=== PATIENT | female | born 1980 | race Caucasian/White ===

== ENCOUNTER → 2016-07-04 | Outpatient (CLI) | payer OTHER ==
[~2016-07-04] MED LIST: AMOXICILLIN 8751 TAB PO; BIRTH CONTROL PILLS; DOXYCYCLINE 10100 MG PO; LEVAQUIN 750MG750 M1 PO; NEXIUM 40MG40 MG PO; PYRIDIUM 100MG100 MG PO
== END ==
LOC: COL.RAD 13:14
DX: N92.5 Other specified irregular menstruation (principal); N94.6 Dysmenorrhea, unspecified; Q51.818 Other congenital malformations of uterus; Z87.42 Personal history of other diseases of the female genital tract

== ENCOUNTER 2017-09-24 11:46 | Emergency (ER) | payer OTHER ==
[~2017-09-24] VITALS: Ht 170.2 cm; Wt 55.4 kg
[2017-09-24 11:52] VITALS: TEMP 98.5
[2017-09-24 12:26] LABS: BASO % 0.3 % (0.0-2.0); EOS # 0.1 (0.0-0.7); GRAN # 4.2 (1.4-6.5); GRAN % 59.3 % (42.2-75.2); HEMATOCRIT 41.8 % (37.0-47.0); HEMOGLOBIN 13.7 g/dl (12.5-16.0); LYMPH # 1.9 (1.2-3.4); LYMPH % 27.2 % (20.0-51.0); MEAN CELL VOLUME 96 fl (80.0-100.0); MEAN CORPUSCULAR HEMOGLOBIN 32 pg (27.0-31.0); MEAN CORPUSCULAR HGB CONC 33 g/dl (33.0-37.0); MEAN PLATELET VOLUME 10.7 fl (7.4-10.4); MONO # 0.8 (0.1-0.6); MONO % 10.9 % (1.7-9.3); PLATELET COUNT 275 K/mm3 (130-400); RED BLOOD COUNT 4.35 M/mm3 (4.10-5.30); REDCELL DISTRIBUTION WIDTH-CV 12.2 % (11.5-14.5)
[2017-09-24 12:35] LABS: ALANINE AMINOTRANSFERASE 21 U/L (9-52); ALKALINE PHOSPHATASE 74 U/L (50-136); ANION GAP 12 mmol/L (7-16); AST,SGOT 27 U/L (15-37); BILIRUBIN,TOTAL 0.3 mg/dL (0.0-1.0); BLOOD UREA NITROGEN 2 mg/dL (7-17); CALCIUM 9.1 mg/dL (8.4-10.2); CARBON DIOXIDE 27 mmol/L (22-30); CHLORIDE 103 mmol/L (98-107); CREATININE, serum 0.78 mg/dL (0.52-1.25); GLUCOSE 89 mg/dL (74-106); LIPASE 97 U/L (23-300); POTASSIUM 3.2 mmol/L (3.4-5.0); SODIUM 141 mmol/L (137-145); TOTAL PROTEIN 7.2 gm/dL (6.4-8.2)
[2017-09-24 12:37] LABS: C-REACTIVE PROTEIN < 0.5 mg/dL (0.0-0.9)
[2017-09-24] MEDS ORDERED: MULTIPLE VITAMI1 CAP PO (12:46)
[2017-09-24] MEDS ORDERED: B-12 250 MCG (12:47)
[2017-09-24] MEDS ORDERED: SUDAFED30 MG PO (12:47)
[2017-09-24 13:37] LABS: COLLECTION METHOD CLEAN CATCH
[2017-09-24 13:50] LABS: PH 6 (5-8); URINE APPEARANCE Clear; URINE BACTERIA None Seen /hpf; URINE BILIRUBIN Negative (NEGATIVE); URINE BLOOD 2+ (NEGATIVE); URINE COLOR Straw; URINE GLUCOSE Negative (NEGATIVE); URINE KETONE Negative (NEGATIVE); URINE LEUKOCYTE ESTERASE Negative (NEGATIVE); URINE NITRATE Negative (NEGATIVE); URINE PROTEIN(semi-quant) Negative (NEGATIVE); URINE UROBILINOGEN Negative (NEGATIVE)
[2017-09-24] MEDS ORDERED: PHENERGAN 25 TA25 MG PO (14:31)
[2017-09-24] MEDS ORDERED: NORCO 325 MG-51 TAB PO (14:31)
[2017-09-24 14:41] VITALS: BP 103/91; PULSE 75
== END 2017-09-24 14:56 | disposition home or self-care (01) ==
LOC: COL.ER 11:46
PROVIDERS: Emergency Medicine
DX: R10.9 Unspecified abdominal pain (principal); Q60.0 Renal agenesis, unilateral; K21.9 Gastro-esophageal reflux disease without esophagitis; Z98.890 Other specified postprocedural states
CPT/HCPCS: J1170; J1885; J2550; J7030; Q9967

== ENCOUNTER 2017-09-27 05:23 | Day surgery (SDC) | payer OTHER ==
[~2017-09-27] VITALS: Ht 170.2 cm; Wt 56.6 kg
[2017-09-27] VITALS (7 sets, daily range): BP systolic 98–102; BP diastolic 64–70; PULSE 70–94; TEMP 98.1–99.5
[~2017-09-27 05:23] MED LIST changes: +B-12 250 MCG; +MULTIPLE VITAMI1 CAP PO; +NORCO 325 MG-51 TAB PO; +PHENERGAN 25 TA25 MG PO; +SUDAFED30 MG PO
== END 2017-09-27 10:46 | disposition home or self-care (01) ==
LOC: SDCO 05:23
DX: N13.30 Unspecified hydronephrosis (principal); R10.9 Unspecified abdominal pain; Q60.0 Renal agenesis, unilateral
CPT/HCPCS: J0690; J1100; J2405; J2550; J2704; J3010; J7120; Q9967

== ENCOUNTER → 2017-10-12 | Outpatient (CLI) | payer OTHER | LOC: COL.RAD 12:31 | DX: R10.11 Right upper quadrant pain (principal); N20.0 Calculus of kidney; Z90.5 Acquired absence of kidney | CPT/HCPCS: A9562 ==

== ENCOUNTER → 2017-10-20 | Outpatient (CLI) | payer OTHER | LOC: COL.RAD 09:00 | DX: N13.4 Hydroureter (principal); Q60.0 Renal agenesis, unilateral; Z87.440 Personal history of urinary (tract) infections | CPT/HCPCS: Q9967 ==